=== PATIENT | female | born 1945 | race Caucasian/White ===

== ENCOUNTER 2016-03-24 12:07 | Observation (INO) | payer MEDICARE, OTHER ==
[2016-03-24] VITALS (9 sets, daily range): BP systolic 182–221; BP diastolic 76–90; PULSE 51–65; RESP 19–20; TEMP 97.8; O2SAT 94–98
[~2016-03-24] VITALS: Ht 157.5 cm; Wt 93.1 kg
[2016-03-24] MEDS ORDERED: FE F PO (12:24)
[2016-03-24] MEDS ORDERED: CIPR500T2 PO (12:24)
[2016-03-24] MEDS ORDERED: LEVOTHYROXINE (12:24)
[2016-03-24] MEDS ORDERED: VERAPAMIL (12:24)
[2016-03-24] MEDS ORDERED: SIMVPOW (12:24)
[2016-03-24] MEDS ORDERED: [UNRECOGNIZED DRUG - OTHER] (12:24)
--- NOTE | 2016-03-24 12:27 | PD ---
HPI Chief Complaint: Syncope/Near-Syncope Time Seen by Provider: 12:13 Travel History International Travel<30 days: No Contact w/Intl Traveler<30days: No Traveled to known affect area: No History of Present Illness HPI 71-year-old female complaining of dizziness palpitation and nausea. Patient states that the symptoms started this morning. Patient states that the symptoms lasted a short time and resolved completely. Patient states that she is feeling better now. Patient was seen in the emergency at [facility] 3 Days Ago for the Same Problem. Patient states the workup were negative. Patient does not have a local physician or hydroelectric systems technician. Patient states that she has some mild aching headache this morning. Patient denies any visual change. Patient denies any neck pain. Patient states that she had chest discomfort with shortness of breath earlier with the palpitation. Patient denies any shortness of breath or chest discomfort now. Patient denies abdominal pain. Patient states that she had nausea earlier but no vomiting. Patient denies dysuria or frequency. Patient denies any fever chills. Patient denies any back pain. Patient has history of hypertension, diet-controlled diabetes, dyslipidemia. Patient is a nonsmoker. Patient has family history of heart disease. PFSH Past Medical History Diabetes: Yes Patient Takes Glucophage: No Hypertension: Yes Thyroid Disease: Yes Influenza Vaccination: Yes Past Surgical History Cholecystectomy: Yes Other Surgery: Yes (GASTRIC BYPASS, BLADDER MESH ) Social History Alcohol Use: No Tobacco Use: No Substance Use: No Allergies-Medications (Allergen,Severity, Reaction): Coded Allergies: Iodine (Verified Allergy, Severe, Anaphylaxis, 03/24/16) Reported Meds & Prescriptions Reported Meds & Active Scripts Active Reported [Bladder ] Fusion (Multi-Vit/Iron-Vit C-Lactobacillus) 130-25-30 mg Cap 1 Cap PO DAILY Ciprofloxacin (Ciprofloxacin HCl) 500 Mg Tab 500 Mg PO BID [Simvastatin] [Levothyroxine] [Verapamil] Review of Systems General / Constitutional: No: Fever Eyes: No: Visual changes HENT: Positive: Lightheadedness, No: Headaches Cardiovascular: Positive: Palpitations, No: Chest Pain or Discomfort Respiratory: Positive: Shortness of Breath Gastrointestinal: No: Abdominal Pain Genitourinary: No: Dysuria Musculoskeletal: No: Pain Skin: No Rash Neurologic: No: Weakness Psychiatric: No: Depression Endocrine: No: Polydipsia Hematologic/Lymphatic: No: Easy Bruising Physical Exam Narrative GENERAL: Well-nourished, well-developed patient. SKIN: Warm and dry. HEAD: Normocephalic. EYES: No scleral icterus. No injection or drainage. NECK: Supple, trachea midline. No JVD or lymphadenopathy. CARDIOVASCULAR: Regular rate and rhythm without murmurs, gallops, or rubs. RESPIRATORY: Breath sounds equal bilaterally. No accessory muscle use. GASTROINTESTINAL: Abdomen soft, non-tender, nondistended. MUSCULOSKELETAL: No cyanosis, or edema. BACK: Nontender without obvious deformity. No CVA tenderness. Neurologic exam normal. Data Data Last Documented VS Vital Signs Date Time Temp Pulse Resp B/P Pulse Ox O2 Delivery O2 Flow Rate FiO2 03/24/16 12:55 98 Nasal Cannula 2 03/24/16 12:16 97.8 65 20 200/86 Orders Electrocardiogram (03/24/16 12:18) Complete Blood Count With Diff (03/24/16 12:18) Comprehensive Metabolic Panel (03/24/16 12:18) Creatine Kinase (Cpk) (03/24/16 12:18) Troponin I (03/24/16 12:18) B-Type Natriuretic Peptide (03/24/16 12:18) Prothrombin Time / Inr (Pt) (03/24/16 12:18) Act Partial Throm Time (Ptt) (03/24/16 12:18) Urinalysis - C+S If Indicated (03/24/16 12:18) Thyroid Stimulating Hormone (03/24/16 12:18) Chest, Single Ap (03/24/16 12:18) Ct Brain W/O Iv Contrast(Rout) (03/24/16 12:18) Iv Access Insert/Monitor (03/24/16 12:18) Ecg Monitoring (03/24/16 12:18) Oximetry (03/24/16 12:18) Sodium Chlor 0.9% 1000 Ml Inj (Ns 1000 M (03/24/16 12:30) Potassium Chloride (Kcl) (03/24/16 14:15) Ventilation & Perfusion Scan (03/24/16 14:29) D-Dimer (03/24/16 14:29) Enoxaparin Inj (Lovenox Inj) (03/24/16 14:30) Labs Laboratory Tests Test 03/24/16 03/24/16 12:34 13:18 White Blood Count 5.4 TH/MM3 Red Blood Count 4.35 MIL/MM3 Hemoglobin 13.1 GM/DL Hematocrit 39.4 % Mean Corpuscular Volume 90.5 FL Mean Corpuscular Hemoglobin 30.2 PG Mean Corpuscular Hemoglobin 33.3 % Concent Red Cell Distribution Width 13.0 % Platelet Count 166 TH/MM3 Mean Platelet Volume 10.3 FL Neutrophils (%) (Auto) 73.5 % Lymphocytes (%) (Auto) 16.4 % Monocytes (%) (Auto) 8.1 % Eosinophils (%) (Auto) 1.1 % Basophils (%) (Auto) 0.9 % Neutrophils # (Auto) 4.0 TH/MM3 Lymphocytes # (Auto) 0.9 TH/MM3 Monocytes # (Auto) 0.4 TH/MM3 Eosinophils # (Auto) 0.1 TH/MM3 Basophils # (Auto) 0.0 TH/MM3 CBC Comment DIFF FINAL Differential Comment Prothrombin Time 11.0 SEC Prothromb Time International 1.0 RATIO Ratio Activated Partial 26.2 SEC Thromboplast Time Sodium Level 144 MEQ/L Potassium Level 3.4 MEQ/L Chloride Level 112 MEQ/L Carbon Dioxide Level 24.5 MEQ/L Anion Gap 8 MEQ/L Blood Urea Nitrogen 16 MG/DL Creatinine 0.63 MG/DL Estimat Glomerular Filtration 93 ML/MIN Rate Random Glucose 89 MG/DL Calcium Level 8.3 MG/DL Total Bilirubin 0.5 MG/DL Aspartate Amino Transf 9 U/L (AST/SGOT) Alanine Aminotransferase 15 U/L (ALT/SGPT) Alkaline Phosphatase 98 U/L Total Creatine Kinase 45 U/L Troponin I LESS THAN 0.02 NG/ML B-Type Natriuretic Peptide 76 PG/ML Total Protein 6.3 GM/DL Albumin 3.3 GM/DL Thyroid Stimulating Hormone 6.940 uIU/ML 3rd Gen Urine Color YELLOW Urine Turbidity HAZY Urine pH 6.0 Urine Specific [place] 1.018 Urine Protein TRACE mg/dL Urine Glucose (UA) NEG mg/dL Urine Ketones NEG mg/dL Urine Occult Blood NEG Urine Nitrite NEG Urine Bilirubin NEG Urine Urobilinogen LESS THAN 2.0 MG/DL Urine Leukocyte Esterase TRACE Urine WBC 2 /hpf Urine Squamous Epithelial 6 /hpf Cells Urine Calcium Oxalate Crystals MANY /hpf Urine Bacteria RARE /hpf Urine Mucus FEW /lpf Microscopic Urinalysis Comment CULT NOT INDICATED [facility] Medical Decision Making Medical Screen Exam Complete: Yes Emergency Medical Condition: Yes Interpretation(s) 1401 p.m. EKG shows sinus bradycardia rate 56. CBC within normal limit. Potassium 3.4. Calcium 8.3. Cardiac enzymes are normal. TSH 6.94. UA positive for bacteria Differential Diagnosis Differential diagnosis including cardiac arrhythmia, TIA, CVA, electrolyte imbalance, dehydration, pneumonia, UTI, sepsis. Narrative Course 71-year-old female with dizziness, nausea, palpitation. Patient had similar episode 3 days ago and this morning. On monitor patient showed a short run of atrial flutter. KCl 20 mEq by mouth given. Dr. Tristan, hydroelectric systems technician on- call came to see the patient. Advised Lovenox. Diagnosis Primary Impression: Paroxysmal atrial flutter Additional Impression: Hypokalemia Admitting Information Admitting Physician Requests: Riley Fernando MD Mar 24, 2016 12:27
[2016-03-24 12:59] LABS: BASOPHIL % 0.9 % (0.0-2.0); EOSINOPHIL # 0.1 TH/MM3 (0-0.4); EOSINOPHIL % 1.1 % (0.0-4.0); HEMATOCRIT 39.4 % (35.0-46.0); HEMO FLAGS DIFF FINAL; LYMPH % 16.4 % (9.0-44.0); LYMPHOCYTE # 0.9 TH/MM3 (1.0-4.8); MEAN CELL VOLUME 90.5 FL (80.0-100.0); MEAN CORPUSCULAR HEMOGLOBIN 30.2 PG (27.0-34.0); MEAN CORPUSCULAR HGB CONC 33.3 % (32.0-36.0); MONO % 8.1 % (0.0-8.0); NEUT % 73.5 % (16.0-70.0); PLATELET COUNT 166 TH/MM3 (150-450); RED BLOOD COUNT 4.35 MIL/MM3 (4.00-5.30); WHITE BLOOD COUNT 5.4 TH/MM3 (4.0-11.0)
[2016-03-24 13:05] LABS: APTT (PATIENT) 26.2 SEC (24.3-30.1)
[2016-03-24] MEDS: SODIUM CHLOR 0.9% 1000 ML INJ 1,000 ML IV SCH ×2 (13:11→22:37)
[2016-03-24 13:13] LABS: ALT (GPT) 15 U/L (10-53); ANION GAP 8 MEQ/L (5-15); AST (GOT) 9 U/L (15-37); BICARBONATE 24.5 MEQ/L (21.0-32.0); BLOOD UREA NITROGEN 16 MG/DL (7-18); CHLORIDE 112 MEQ/L (98-107); GLOMERULAR FILTRATION RATE 93 ML/MIN (>89); POTASSIUM 3.4 MEQ/L (3.5-5.1); SODIUM (NA) 144 MEQ/L (136-145)
--- NOTE | 2016-03-24 13:18 | RADRPT ---
EXAM DATE/TIME: 03/24/2016 12:44 [facility] COMPARISON: No previous studies available for comparison. INDICATIONS : Abnormally tired with weakness and dizziness. MEDICAL HISTORY : None. SURGICAL HISTORY : None. ENCOUNTER: Initial ACUITY: 3 days PAIN SCORE: 0/10 LOCATION: Bilateral chest FINDINGS: A single view of the chest demonstrates the lungs to be symmetrically aerated without evidence of mas s, infiltrate or effusion. The cardiomediastinal contours are unremarkable. Osseous structures are intact. CONCLUSION: No acute disease. Gordon Deluna MD on March 24, 2016 at 13:16 Board Certified Radiologist. This report was verified electronically.
[2016-03-24 13:22] LABS: ALKALINE PHOSPHATASE 98 U/L (45-117); TOTAL BILIRUBIN ADULT 0.5 MG/DL (0.2-1.0)
[2016-03-24 13:23] LABS: CREATINE KINASE 45 U/L (26-192)
[2016-03-24 13:40] LABS: BACTERIA, URINE RARE /hpf; BLOOD, URINE NEG (NEG); CALCIUM OXALATE CRYSTALS,URINE MANY /hpf; COMMENT (UR) CULT NOT INDICATED; CULTURE IF INDICATED CULT NOT INDICATED; GLUCOSE,URINE NEG (NEG); KETONE, URINE NEG (NEG); MUCUS URINE FEW /lpf (OCC); NITRITE,URINE NEG (NEG); SQUAMOUS EPITHELIAL CELL URINE 6 /hpf (0-5); URINE COLOR YELLOW (YELLW/STRAW)
--- NOTE | 2016-03-24 13:44 | RADRPT ---
EXAM DATE/TIME: 03/24/2016 13:25 [facility] COMPARISON: No previous studies available for comparison. INDICATIONS : Dizziness and nausea. RADIATION DOSE: 38.49 CTDIvol (mGy) MEDICAL HISTORY : Hypertension. Diabetes. SURGICAL HISTORY : Cholecystectomy. ENCOUNTER: Initial ACUITY: 1 day PAIN SCALE: 0/10 LOCATION: cranial TECHNIQUE: Multiple contiguous axial images were obtained of the head. Using automated exposure control and adj ustment of the mA and/or kV according to patient size, radiation dose was kept as low as reasonably a chievable to obtain optimal diagnostic quality images. FINDINGS: CEREBRUM: The ventricles are normal for age. No evidence of midline shift, mass lesion, hemorrhage or acute in farction. No extra-axial fluid collections are seen. POSTERIOR FOSSA: The cerebellum and brainstem are intact. The 4th ventricle is midline. The cerebellopontine angle i s unremarkable. EXTRACRANIAL: The visualized portion of the orbits is intact. Right parietal scalp lesion SKULL: The calvaria is intact. No evidence of skull fracture. CONCLUSION: 1. No acute intracranial abnormality. 2. Right parietal scalp lesion. Clinical correlation. Gordon Deluna MD on March 24, 2016 at 13:42 Board Certified Radiologist. This report was verified electronically.
[2016-03-24] MEDS ORDERED: POTASSIUM CHLORIDE 20 MEQ CONTROLLED RELEASE TAB PO ONE ×2 (14:15→14:45)
[2016-03-24] MEDS ORDERED: ENOXAPARIN SODIUM 100 MG/ML SYRINGE SQ ONE (14:30)
[2016-03-24] MEDS ORDERED: ENALAPRILAT 1.25 MG/ML VIAL IV PUSH ONE (16:00)
[2016-03-24] MEDS ORDERED: SODIUM CHLORIDE 0.9% FLUSH 5 ML FLUSH FLUSH PRN (16:15)
--- NOTE | 2016-03-24 16:22 | MB ---
cc: TYRONE CHAPARRO M.D. DATE OF CONSULTATION: 03/24/2016 REASON FOR CONSULTATION AND HISTORY OF PRESENT ILLNESS: The patient is a pleasant 71-year-old white female I am seeing for atrial flutter. Her is there. The patient flew in from [place] approximately ten days ago. Many years ago she may have had some flip-flops in her chest or fluttering when she had a thyroid issue but has had none since. The patient approximately one week ago was seen in [facility] for thirty minutes of palpitations. Apparently her heart rate in the ambulance was over 110, but was back to normal in the emergency room. I do not have records. Except for generalized fatigue and mild stable dyspnea, she has had no symptoms up until today. This morning, she had headache, nausea and a faster heart rate which lasted twenty minutes, but resolved by the time she got to the emergency room. In the emergency room, she did have a very short run of controlled atrial flutter. She is in sinus rhythm now with essentially normal EKG. PAST MEDICAL HISTORY: 1. Hypertension. 2. Diabetes. 3. Hyperlipidemia. 4. Hypothyroidism. 5. Gastric bypass. 6. Bladder suspension. 7. Cholecystectomy. 8. Degenerative joint disease. ALLERGIES: IODINE DYE, WHICH RESULTS IN ANGIOEDEMA. SOCIAL HISTORY: She is and does not smoke or drink. REVIEW OF SYSTEMS: Her review of systems is only remarkable for occasional joint pain and sleep issues along with the above. MEDICATIONS PRIOR TO ADMISSION: 1. Levothyroxine. 2. Simvastatin. 3. Verapamil. 4. Glucophage. LABORATORY DATA: CBC normal. Potassium 3.4, which will be repleted. Glucose 89. Liver functions normal. Troponin and BNP normal. TSH mildly elevated at 6.94. Urinalysis negative. She did have a recent urinary tract infection. IMAGING STUDIES: Head CT remarkable for a scalp lesion but no intracranial abnormalities. Chest x-ray negative. PHYSICAL EXAMINATION: GENERAL: On exam, she is alert and oriented times three. She is overweight. SKIN: There are no xanthelasma and oropharyngeal mucosa normal. CHEST: Clear. CARDIOVASCULAR: JVD normal. PMI not well-appreciated. S1, S2. No murmurs or gallops. ABDOMEN: Benign. EXTREMITIES: No cyanosis, clubbing or edema. PULSES: Carotids without bruits. Radials 1 to 2+. Femorals deep, 1+ without bruits. Pedals 1+. ASSESSMENT AND PLAN: The patient has had palpitations with a short run of documented controlled atrial flutter. She has multiple cardiac risk factors. At this point, I would recommend the followin. Continue home medication including for rapid male as clearly this appears to be controlling her heart rate. Her will clarify the dose. 2. The emergency room physician will order a VQ lung scan to rule out pulmonary embolus, given the woman's recent long plane trip and iodine dye allergy. He will also start her on Lovenox. 3. Echocardiogram to assess ventricular and valvular function. 4. The patient most likely will need a SPECT nuclear to rule out significant ischemia. Further recommendations will follow. MD JEAN-CLAUDE Ashby/ELEAZAR /2:46 PM /4:13 PM
--- NOTE | 2016-03-24 16:34 | HHI.HP ---
[facility] Service [facility] Primary Care Physician No Primary Care Physician Admission Diagnosis paroxysmal atrial flutter Diagnoses: Chief Complaint: Palpitations Travel History International Travel<30 Days: No Contact w/Intl Traveler <30 Da: No Traveled to Known Affected Are: No History of Present Illness 71-year-old female with a past medical history of HTN, HLD, hypothyroidism who presented with palpitations. The patient states that she's been having recent episodes of heart palpitations. She states that last week she had an episode where her heart was racing with associated shortness of breath. She was evaluated in the ED at [facility] and was given prescription for UTI and discharged. Today she had a recurrent episode where she felt tired, weak, nauseous, with a mild headache. She denies any chest pain. She states that she is always a little short of breath, denies any acute worsening today. She denies any fevers or chills. She states that after receiving antibiotics for UTI her dysuria has resolved. She did recently travel from [place] about . She does state that her legs are sore when they're touched. She did not take her blood pressure medications today. Review of Systems Other 10 point review of systems performed and was negative except as stated in the history of present illness Past Family Social History Past Medical History Hypertension Hyperlipidemia Hypothyroidism Past Surgical History Gastric bypass surgery Bladder mesh Cholecystectomy Lipoma removed from right arm Reported Medications The patient is unsure of her home doses of medications [Bladder ] Fusion (Multi-Vit/Iron-Vit C-Lactobacillus) 130-25-30 mg Cap 1 Cap PO DAILY Ciprofloxacin (Ciprofloxacin HCl) 500 Mg Tab 500 Mg PO BID [Simvastatin] [Levothyroxine] [Verapamil] Allergies: Coded Allergies: Iodine (Verified Allergy, Severe, Anaphylaxis, 03/24/16) Active Ordered Medications Current Medications Medications (Trade) Dose Ordered Sig/Rommel Route Start Time Stop Time Status Last Admin (NS 1000 ml Inj) 1,000 ml @ 100 mls/hr Q10H IV 03/24/16 12:30 03/24/16 13:11 (Isoptin Sr) 180 mg DAILY PO 03/25/16 09:00 (Vasotec Inj) 1.25 mg Q6H PRN IV PUSH 03/24/16 22:00 (NS Flush) 2 ml UNSCH PRN FLUSH 03/24/16 16:15 (NS Flush) 2 ml BID FLUSH 03/24/16 21:00 Family History Mother had diabetes Mom had a pacemaker Social History Former tobacco use, none currently Denies any alcohol or drug use for 52 years with 3 children Physical Exam Vital Signs Vital Signs Date Time Temp Pulse Resp B/P Pulse Ox O2 Delivery O2 Flow Rate FiO2 03/24/16 16:09 52 19 182/76 95 Nasal Cannula 2 03/24/16 16:00 51 221/85 Nasal Cannula 2 03/24/16 15:26 51 20 221/90 95 Nasal Cannula 2 03/24/16 12:55 98 Nasal Cannula 2 03/24/16 12:16 97.8 65 20 200/86 94 Physical Exam GENERAL: Well-developed well-nourished. In no acute distress. SKIN: Warm and dry. No lesions noted. HEENT: Normocephalic. Pupils equal and round. Mucous membranes pink and moist. CARDIOVASCULAR: Bradycardic rate and rhythm. No murmur appreciated. RESPIRATORY: No accessory muscle use. Clear to auscultation. Breath sounds equal bilaterally. GASTROINTESTINAL: Abdomen soft, non-tender, nondistended. Bowel sounds x4. MUSCULOSKELETAL: No obvious deformities. No clubbing or cyanosis. No edema. Tender to palpation bilaterally. NEUROLOGICAL: Awake and alert. No focal neurological deficits. Moves upper and lower extremities spontaneously. Normal speech. PSYCHIATRIC: Appropriate mood and affect; insight and judgment normal. Laboratory Laboratory Tests Test 03/24/16 03/24/16 12:34 13:18 White Blood Count 5.4 Red Blood Count 4.35 Hemoglobin 13.1 Hematocrit 39.4 Mean Corpuscular Volume 90.5 Mean Corpuscular Hemoglobin 30.2 Mean Corpuscular Hemoglobin 33.3 Concent Red Cell Distribution Width 13.0 Platelet Count 166 Mean Platelet Volume 10.3 Neutrophils (%) (Auto) 73.5 Lymphocytes (%) (Auto) 16.4 Monocytes (%) (Auto) 8.1 Eosinophils (%) (Auto) 1.1 Basophils (%) (Auto) 0.9 Neutrophils # (Auto) 4.0 Lymphocytes # (Auto) 0.9 Monocytes # (Auto) 0.4 Eosinophils # (Auto) 0.1 Basophils # (Auto) 0.0 CBC Comment DIFF FINAL Differential Comment Prothrombin Time 11.0 Prothromb Time International 1.0 Ratio Activated Partial 26.2 Thromboplast Time D-Dimer Quantitative (PE/DVT) 0.27 Sodium Level 144 Potassium Level 3.4 Chloride Level 112 Carbon Dioxide Level 24.5 Anion Gap 8 Blood Urea Nitrogen 16 Creatinine 0.63 Estimat Glomerular Filtration 93 Rate Random Glucose 89 Calcium Level 8.3 Total Bilirubin 0.5 Aspartate Amino Transf 9 (AST/SGOT) Alanine Aminotransferase 15 (ALT/SGPT) Alkaline Phosphatase 98 Total Creatine Kinase 45 Troponin I LESS THAN 0.02 B-Type Natriuretic Peptide 76 Total Protein 6.3 Albumin 3.3 Thyroid Stimulating Hormone 6.940 3rd Gen Urine Color YELLOW Urine Turbidity HAZY Urine pH 6.0 Urine Specific [place] 1.018 Urine Protein TRACE Urine Glucose (UA) NEG Urine Ketones NEG Urine Occult Blood NEG Urine Nitrite NEG Urine Bilirubin NEG Urine Urobilinogen LESS THAN 2.0 Urine Leukocyte Esterase TRACE Urine WBC 2 Urine Squamous Epithelial 6 Cells Urine Calcium Oxalate Crystals MANY Urine Bacteria RARE Urine Mucus FEW Microscopic Urinalysis Comment CULT NOT INDICATED Result Diagram: 03/24/16 1234 03/24/16 1234 Imaging Last Impressions Head CT 03/24/168 Signed Impressions: Service Date/Time: Thursday, March 24, 2016 13:25 - CONCLUSION: 1. No acute intracranial abnormality. 2. Right parietal scalp lesion. Clinical correlation. Gordon Deluna MD Chest X-Ray 03/24/168 Signed Impressions: Service Date/Time: Thursday, March 24, 2016 12:44 - CONCLUSION: No acute disease. Gordon Deluna MD Assessment and Plan Problem List: (1) Paroxysmal atrial flutter ICD Code: I48.92 Status: Acute Assessment and Plan 71-year-old female with a past medical history of HTN, HLD, hypothyroidism who presented with palpitations Paroxysmal atrial flutter: EKG shows sinus bradycardia, but patient did have a run of atrial flutter on telemetry. Cardiology was consulted and evaluated the patient in the ED, appreciate recommendations. Chadsvasc 3, given Lovenox, continue for now. Verapamil was continued. VQ scan was ordered with iodine allergy, doubt PE with normal d-dimer. Echocardiogram ordered. Potassium replenished. Check troponins. Follow-up electrolytes and repeat BMP. Monitor on telemetry. Reconcile and adjust home thyroid medication. Calf pain: Doubt DVT with normal d-dimer, but with calf tenderness and recent travel will check Doppler ultrasound. Hypothyroidism: TSH elevated at 6.9. Patient is unsure of home levothyroxine dose. Reconcile home levothyroxine dose and increase. Check T4. Accelerated hypertension: Likely from missed BP meds. Give IV Vasotec 1 now and continue as needed. Home verapamil resumed by cardiology. Hypokalemia: Mild. Potassium 3.4. Replenished orally. Check magnesium and follow-up BMP. Replenish electrolytes as needed. Recent UTI: Patient states she has a history of frequent UTIs. Status post treatment with antibiotics. Urinary symptoms have resolved. UA slightly abnormal, but no culture sent. Monitor off antibiotics for now. DVT prophylaxis: Lovenox Written by Dao Mcarthur, acting as scribe for Dr. Banks on 03/24/16 at 16:34. Discussed Condition With Patient with at bedside, ED RN, Dr. Arthur Attending Statement The documentation accurately reflects the work performed [id number] by me on at 16:34. Dao Mcarthur Mar 24, 2016 16:34 Gavino Meier MD Mar 26, 2016 14:11
--- NOTE | 2016-03-24 17:18 | RADRPT ---
EXAM DATE/TIME: 03/24/2016 16:54 [facility] COMPARISON: No previous studies available for comparison. INDICATIONS : Dyspnea with palpitations. DOSE: 8.5 mCi Tc99m MAA IV 1.3 mCi Tc99m DTPA aerosol MEDICAL HISTORY : Hypertension. Hypothyroidism. SURGICAL HISTORY : Cholecystectomy. Gastric bypass and bladder mesh. ENCOUNTER: Initial ACUITY: 1 day PAIN SCALE: 0/10 LOCATION: chest TECHNIQUE: Following five minutes of tidal breathing of DTPA aerosol, planar images of the lungs were performed in eight projections. The patient was then injected with MAA, and eight-view perfusion scan was perf ormed. FINDINGS: There is a mildly heterogeneous pattern of aerosol delivery to the periphery of both lungs. No focal ventilatory defects are seen. The perfusion lung scan demonstrates a homogenous pattern of uptake in both lungs. No segmental or s ubsegmental defects are seen. CONCLUSION: 1. No evidence for pulmonary embolus. Matt Griffin MD on March 24, 2016 at 17:16 Board Certified Radiologist. This report was verified electronically.
[2016-03-24] MEDS: ENALAPRILAT 1.25 MG/ML VIAL IV PUSH PRN (18:15)
--- NOTE | 2016-03-24 18:25 | RADRPT ---
EXAM DATE/TIME: 03/24/2016 17:30 [facility] COMPARISON: No previous studies available for comparison. INDICATIONS : Emboli MEDICAL HISTORY : Hypertension. Thyroid disease. Diabetes. SURGICAL HISTORY : Right arm surgery. ENCOUNTER: Initial ACUITY: 1 day PAIN SCORE: 0/10 LOCATION: Bilateral legs TECHNIQUE: Venous ultrasound of the left and right leg was performed from the inguinal ligament to the proximal calf. Real-time, color Doppler and spectral tracing, compression and augmentation techniques were us ed. FINDINGS: RIGHT LEG: There is normal compressibility of the deep venous system from the inguinal region to the proximal ca lf. No echogenic clot is seen in the lumen of the common femoral, femoral, popliteal, and posterior tibial veins. There is a normal response of the venous system to proximal and distal augmentation an d respiration. LEFT LEG: There is normal compressibility of the deep venous system from the inguinal region to the proximal ca lf. No echogenic clot is seen in the lumen of the common femoral, femoral, popliteal, and posterior tibial veins. There is a normal response of the venous system to proximal and distal augmentation an d respiration. CONCLUSION: Normal examination. Matt Griffin MD on March 24, 2016 at 18:23 Board Certified Radiologist. This report was verified electronically.
[2016-03-24] MEDS: SODIUM CHLORIDE 0.9% FLUSH 5 ML FLUSH FLUSH SCH (21:07)
[2016-03-25] VITALS (9 sets, daily range): BP systolic 140–209; BP diastolic 68–87; PULSE 52–59; RESP 12–20; TEMP 97.1–98.3; O2SAT 92–96
[2016-03-25] MEDS ORDERED: ENOXAPARIN SODIUM 100 MG/ML SYRINGE SQ SCH (03:00)
[2016-03-25 07:00] LABS: HEMATOCRIT 36.1 % (35.0-46.0); MEAN CELL VOLUME 89.8 FL (80.0-100.0); MEAN CORPUSCULAR HEMOGLOBIN 30.1 PG (27.0-34.0); MEAN CORPUSCULAR HGB CONC 33.5 % (32.0-36.0); PLATELET COUNT 154 TH/MM3 (150-450); RED BLOOD COUNT 4.02 MIL/MM3 (4.00-5.30); RED CELL DISTRIBUTION WIDTH 13.1 % (11.6-17.2); REVIEW FLAG FINAL; WHITE BLOOD COUNT 5.2 TH/MM3 (4.0-11.0)
[2016-03-25 07:27] LABS: POTASSIUM 3.6 MEQ/L (3.5-5.1)
[2016-03-25 07:36] LABS: FREE T4 1.12 NG/DL (0.76-1.46)
--- NOTE | 2016-03-25 07:43 | PD.CARD.PN ---
Subjective Subjective Remarks Patient denies any chest pain, shortness of breath, palpitations, GI symptoms or bleeding. Telemetry reveals sinus bradycardia. Objective Medications Reviewed Vital Signs / I&O Vital Signs Date Time Temp Pulse Resp B/P Pulse Ox O2 Delivery O2 Flow Rate FiO2 03/25/16 04:44 97.1 53 20 156/75 96 03/25/16 00:20 98.3 52 20 166/73 96 03/25/16 00:00 52 03/24/16 22:42 63 20 188/79 96 2 03/24/16 20:10 96 Nasal Cannula 2.00 03/24/16 19:59 63 20 193/79 94 Nasal Cannula 2 03/24/16 16:40 95 Nasal Cannula 2.00 03/24/16 16:09 52 19 182/76 95 Nasal Cannula 2 03/24/16 16:00 51 221/85 Nasal Cannula 2 03/24/16 15:26 51 20 221/90 95 Nasal Cannula 2 03/24/16 12:55 98 Nasal Cannula 2 03/24/16 12:16 97.8 65 20 200/86 94 I/O 03/24/16 03/24/16 03/24/16 03/25/16 03/25/16 03/25/16 07:00 15:00 23:00 07:00 15:00 23:00 Intake Total 240 ml Balance 240 ml Intake Oral 240 ml # Voids 2 Physical Exam GENERAL: Overweight, well-nourished, well-developed patient in no apparent distress. SKIN: Warm and dry. NECK: JVD normal - less than or equal to 5 cm H20. CARDIOVASCULAR: Regular rate and rhythm without murmurs, gallops, or rubs. RESPIRATORY: Normal breath sounds - equal bilaterally. No accessory muscle use. No wheezes, rales or rubs. PERIPHERY: No cyanosis, or edema. Laboratory Laboratory Tests Test 03/24/16 03/24/16 03/24/16 03/24/16 12:34 13:18 16:50 22:40 White Blood Count 5.4 TH/MM3 Red Blood Count 4.35 MIL/MM3 Hemoglobin 13.1 GM/DL Hematocrit 39.4 % Mean Corpuscular Volume 90.5 FL Mean Corpuscular Hemoglobin 30.2 PG Mean Corpuscular Hemoglobin 33.3 % Concent Red Cell Distribution Width 13.0 % Platelet Count 166 TH/MM3 Mean Platelet Volume 10.3 FL Neutrophils (%) (Auto) 73.5 % Lymphocytes (%) (Auto) 16.4 % Monocytes (%) (Auto) 8.1 % Eosinophils (%) (Auto) 1.1 % Basophils (%) (Auto) 0.9 % Neutrophils # (Auto) 4.0 TH/MM3 Lymphocytes # (Auto) 0.9 TH/MM3 Monocytes # (Auto) 0.4 TH/MM3 Eosinophils # (Auto) 0.1 TH/MM3 Basophils # (Auto) 0.0 TH/MM3 CBC Comment DIFF FINAL Differential Comment Prothrombin Time 11.0 SEC Prothromb Time International 1.0 RATIO Ratio Activated Partial 26.2 SEC Thromboplast Time D-Dimer Quantitative (PE/DVT) 0.27 MG/L FEU Sodium Level 144 MEQ/L Potassium Level 3.4 MEQ/L Chloride Level 112 MEQ/L Carbon Dioxide Level 24.5 MEQ/L Anion Gap 8 MEQ/L Blood Urea Nitrogen 16 MG/DL Creatinine 0.63 MG/DL Estimat Glomerular Filtration 93 ML/MIN Rate Random Glucose 89 MG/DL Calcium Level 8.3 MG/DL Total Bilirubin 0.5 MG/DL Aspartate Amino Transf 9 U/L (AST/SGOT) Alanine Aminotransferase 15 U/L (ALT/SGPT) Alkaline Phosphatase 98 U/L Total Creatine Kinase 45 U/L Troponin I LESS THAN 0.02 LESS THAN 0.02 LESS THAN 0.02 NG/ML NG/ML NG/ML B-Type Natriuretic Peptide 76 PG/ML Total Protein 6.3 GM/DL Albumin 3.3 GM/DL Thyroid Stimulating Hormone 6.940 uIU/ML 3rd Gen Urine Color YELLOW Urine Turbidity HAZY Urine pH 6.0 Urine Specific [place] 1.018 Urine Protein TRACE mg/dL Urine Glucose (UA) NEG mg/dL Urine Ketones NEG mg/dL Urine Occult Blood NEG Urine Nitrite NEG Urine Bilirubin NEG Urine Urobilinogen LESS THAN 2.0 MG/DL Urine Leukocyte Esterase TRACE Urine WBC 2 /hpf Urine Squamous Epithelial 6 /hpf Cells Urine Calcium Oxalate Crystals MANY /hpf Urine Bacteria RARE /hpf Urine Mucus FEW /lpf Microscopic Urinalysis Comment CULT NOT INDICATED Magnesium Level 2.0 MG/DL Test 03/25/16 05:34 White Blood Count 5.2 TH/MM3 Red Blood Count 4.02 MIL/MM3 Hemoglobin 12.1 GM/DL Hematocrit 36.1 % Mean Corpuscular Volume 89.8 FL Mean Corpuscular Hemoglobin 30.1 PG Mean Corpuscular Hemoglobin 33.5 % Concent Red Cell Distribution Width 13.1 % Platelet Count 154 TH/MM3 Mean Platelet Volume 9.9 FL Sodium Level 145 MEQ/L Potassium Level 3.6 MEQ/L Chloride Level 110 MEQ/L Carbon Dioxide Level 29.0 MEQ/L Anion Gap 6 MEQ/L Blood Urea Nitrogen 14 MG/DL Creatinine 0.51 MG/DL Estimat Glomerular Filtration 119 ML/MIN Rate Random Glucose 77 MG/DL Calcium Level 7.9 MG/DL Free Thyroxine 1.12 NG/DL Thyroid Stimulating Hormone 11.700 uIU/ML 3rd Gen Imaging Last 48 hours Impressions Lung Scan-VQ Nuclear Medicine 03/24/16 1429 Signed Impressions: Service Date/Time: Thursday, March 24, 2016 16:54 - CONCLUSION: 1. No evidence for pulmonary embolus. Matt Griffin MD Head CT 03/24/16 1218 Signed Impressions: Service Date/Time: Thursday, March 24, 2016 13:25 - CONCLUSION: 1. No acute intracranial abnormality. 2. Right parietal scalp lesion. Clinical correlation. Gordon Deluna MD Chest X-Ray 03/24/16 1218 Signed Impressions: Service Date/Time: Thursday, March 24, 2016 12:44 - CONCLUSION: No acute disease. Gordon Deluna MD Lower Extremity Ultrasound 03/24/16 0000 Signed Impressions: Service Date/Time: Thursday, March 24, 2016 17:30 - CONCLUSION: Normal examination. Matt Griffin MD Assessment and Plan Assessment and Plan Problems: Palpitations with one isolated strip showing atrial flutter with controlled response. I have reviewed the strip with Dr. Crawford and we both feel this does represent atrial flutter. Hypertension Hyperlipidemia Diabetes Hypothyroidism Obesity Recommendations: Continue verapamil for rate control. I will start Eliquis because of risk for stroke/embolus. The risks/benefits/ alternatives were explained and informed consent obtained. Risk factor modification per primary service. Echocardiogram is pending. If the echocardiogram is essentially normal and the patient is stable she can be discharged home tomorrow with follow-up in [place]. She will arrange cardiology follow-up there through her primary care provider. I would not pursue any heavy exertion. She will need a sleep apnea test at some point in time and ischemic workup. I will be available if needed. Harpal Tristan MD Mar 25, 2016 07:43
[2016-03-25] MEDS: SODIUM CHLORIDE 0.9% FLUSH 5 ML FLUSH FLUSH SCH ×2 (09:00→21:37)
[2016-03-25] MEDS: VERAPAMIL HCL 180 MG SUSTAINED RELEASE TAB PO SCH (09:09)
[2016-03-25] MEDS: SODIUM CHLOR 0.9% 1000 ML INJ 1,000 ML IV SCH (09:10)
[2016-03-25] MEDS ORDERED: LISI-519 PO (10:13)
[2016-03-25] MEDS ORDERED: APIX5TAB PO (10:13)
--- NOTE | 2016-03-25 10:34 | HHI.DCPOC ---
Discharge Care Plan Goals to Promote Your Health * To prevent worsening of your condition and complications * To maintain your health at the optimal level Directions to Meet Your Goals Take your medications as prescribed Follow your dietary instruction Follow activity as directed Keep your appointments as scheduled Take your immunizations and boosters as scheduled If your symptoms worsen call your PCP, if no PCP go to Urgent Care Center or Emergency Room Smoking is Dangerous to Your Health. Avoid second hand smoke Call the 24-hour hour crisis hotline for domestic abuse at Essie Rivas MD Mar 25, 2016 10:14
--- NOTE | 2016-03-25 10:34 | HHI.PR ---
Subjective Remarks Her BP is noted elevated today. Start lisinopril. Says she still feels sob, but is improved. No n/v/d/c. Has the same cough, no fever or chills. Says she is aware of haviong a nodule in her imaging as was seen before. Doesn't have a pulm but intends to follow with pulm as OP. Objective Vitals Vital Signs Date Time Temp Pulse Resp B/P Pulse Ox O2 Delivery O2 Flow Rate FiO2 03/25/16 08:00 97.7 59 12 209/84 96 03/25/16 04:44 97.1 53 20 156/75 96 03/25/16 00:20 98.3 52 20 166/73 96 03/25/16 00:00 52 03/24/16 22:42 63 20 188/79 96 2 03/24/16 20:10 96 Nasal Cannula 2.00 03/24/16 19:59 63 20 193/79 94 Nasal Cannula 2 03/24/16 16:40 95 Nasal Cannula 2.00 03/24/16 16:09 52 19 182/76 95 Nasal Cannula 2 03/24/16 16:00 51 221/85 Nasal Cannula 2 03/24/16 15:26 51 20 221/90 95 Nasal Cannula 2 03/24/16 12:55 98 Nasal Cannula 2 03/24/16 12:16 97.8 65 20 200/86 94 I/O 03/24/16 03/24/16 03/24/16 03/25/16 03/25/16 03/25/16 07:00 15:00 23:00 07:00 15:00 23:00 Intake Total 240 ml Balance 240 ml Intake Oral 240 ml # Voids 2 Result Diagram: 03/25/16 0534 03/25/16 0534 Imaging Last Impressions Lung Scan-V Nuclear Medicine 03/24/16 1429 Signed Impressions: Service Date/Time: Thursday, March 24, 2016 16:54 - CONCLUSION: 1. No evidence for pulmonary embolus. Matt Griffin MD Head CT 03/24/16 1218 Signed Impressions: Service Date/Time: Thursday, March 24, 2016 13:25 - CONCLUSION: 1. No acute intracranial abnormality. 2. Right parietal scalp lesion. Clinical correlation. Gordon Deluna MD Chest X-Ray 03/24/16 1218 Signed Impressions: Service Date/Time: Thursday, March 24, 2016 12:44 - CONCLUSION: No acute disease. Gordon Deluna MD Lower Extremity Ultrasound 03/24/16 0000 Signed Impressions: Service Date/Time: Thursday, March 24, 2016 17:30 - CONCLUSION: Normal examination. Matt Griffin MD Objective Remarks GENERAL: Well-developed well-nourished. In no acute distress. SKIN: Warm and dry. No lesions noted. HEENT: Normocephalic. Pupils equal and round. Mucous membranes pink and moist. CARDIOVASCULAR: Bradycardic rate and rhythm. No murmur appreciated. RESPIRATORY: No accessory muscle use. Clear to auscultation. Breath sounds equal bilaterally. GASTROINTESTINAL: Abdomen soft, non-tender, nondistended. Bowel sounds x4. MUSCULOSKELETAL: No obvious deformities. No clubbing or cyanosis. No edema. Tender to palpation bilaterally. NEUROLOGICAL: Awake and alert. No focal neurological deficits. Moves upper and lower extremities spontaneously. Normal speech. PSYCHIATRIC: Appropriate mood and affect; insight and judgment normal. A/P Problem List: (1) Paroxysmal atrial flutter ICD Code: I48.92 Status: Acute Assessment and Plan 71-year-old female with a past medical history of HTN, HLD, hypothyroidism who presented with palpitations Proximal atrial flutter: EKG shows sinus bradycardia, but patient did have a run of atrial flutter on telemetry. Cardiology was consulted and evaluated the patient in the ED, appreciate recommendations. Chadsvasc 3, given Lovenox, continue for now. Verapamil was continued. VQ scan was ordered with iodine allergy, doubt PE with normal d-dimer. Echocardiogram ordered. Potassium replenished. Check troponins. Follow-up electrolytes and repeat BMP. Monitor on telemetry. Reconcile and adjust home thyroid medication. Calf pain: Doubt DVT with normal d-dimer, but with calf tenderness and recent travel will check Doppler ultrasound negative. VQ scan negative . Hypothyroidism: TSH elevated at 6.9. Patient is unsure of home levothyroxine dose. Reconcile home levothyroxine dose and increase. Check T4. Accelerated hypertension: Likely from missed BP meds. Give IV Vasotec 1 now and continue as needed. Home verapamil resumed by cardiology. Hypokalemia: Mild. Potassium 3.4. Replenished orally. Check magnesium and follow-up BMP. Replenish electrolytes as needed. Recent UTI: Patient states she has a history of frequent UTIs. Status post treatment with antibiotics. Urinary symptoms have resolved. UA slightly abnormal, but no culture sent. Monitor off antibiotics for now. DVT prophylaxis: Lovenox DC if normal ECHO and BP sustain SBP < 160 Essie Rivas MD Mar 25, 2016 10:09
[2016-03-25] MEDS ORDERED: LISINOPRIL 5 MG TAB PO ONE (11:00)
--- NOTE | 2016-03-25 11:53 | EKG ---
Date Performed: 03/24/2016 Time Performed: 12:38:02 PTAGE: 71 years EKG: SINUS BRADYCARDIA MODERATE ST DEPRESSION ABNORMAL ECG NO PREVIOUS TRACING DOCTOR: Shaq Valenzuela Interpretating Date/Time 03/25/2016 11:47:16
[2016-03-25] MEDS: ENALAPRILAT 1.25 MG/ML VIAL IV PUSH PRN (17:11)
[2016-03-25] MEDS: APIXABAN 5 MG TABLET PO SCH ×2 (17:11→21:36)
--- NOTE | 2016-03-25 19:00 | EC ---
Study Study Date:03/25/2016 STUDY CONCLUSIONS SUMMARY - Left ventricle: The cavity size was normal. Wall thickness was normal. Systolic function was vigorous. The estimated ejection fraction was in the range of 65% to 70%. Wall motion was normal; there were no regional wall motion abnormalities. - Aortic valve: Valve area: 2.36cm^2 (Vmax). If LV function is below 40, please consider prescribing an ACEI or ARB or document rationale for non-use. PROCEDURE DATA STUDY STATUS: Elective. Procedure: Transthoracic echocardiography. Image quality was adequate. Scanning was performed from the parasternal, apical, and subcostal acoustic windows. Study completion: The patient tolerated the procedure well. Transthoracic echocardiography. M-mode, complete 2D, complete spectral Doppler, and color Doppler. Height: Height: 62in. Weight: Weight: 197.6lb. Body mass index: BMI: 36.2kg/m^2. Body surface area: BSA: 1.9m^2. Patient status: Inpatient. CARDIAC ANATOMY LEFT VENTRICLE: The cavity size was normal. Wall thickness was normal. Systolic function was vigorous. The estimated ejection fraction was in the range of 65% to 70%. Wall motion was normal; there were no regional wall motion abnormalities. AORTIC VALVE: Trileaflet; normal thickness leaflets. Doppler: Transvalvular velocity was within the normal range. There was no stenosis. No regurgitation. Valve area: 2.36cm^2 (Vmax). Indexed valve area: 1.24cm^2/m^2 (Vmax). Peak gradient: 11mm Hg (S). AORTA: Aortic root: The aortic root was normal in size. MITRAL VALVE: Structurally normal valve. Doppler: Transvalvular velocity was within the normal range. There was no evidence for stenosis. Trace regurgitation. LEFT ATRIUM: The atrium was normal in size. RIGHT VENTRICLE: The cavity size was normal. Wall thickness was normal. PULMONIC VALVE: Doppler: Transvalvular velocity was within the normal range. There was no evidence for stenosis. No regurgitation. TRICUSPID VALVE: Structurally normal valve. Doppler: Transvalvular velocity was within the normal range. Trace regurgitation. PULMONARY ARTERY: The main pulmonary artery was normal-sized. Systolic pressure was within the normal range. RIGHT ATRIUM: The atrium was normal in size. PERICARDIUM: There was no pericardial effusion. SYSTEMIC VEINS: Inferior vena cava: The vessel was normal in size. Patient weight: 197.6lb _Ejection fraction:_ 65-75% _Fractional shortening:_ 32% up to 5Kg 5-11.5Kg 11.6-22.9Kg 23-45Kg 45-57Kg Aortic Root 7-13 <17 13-22 17-27 17-27 LA diam 6-13 <23 24-38 33-47 37-40 RVID 10-17 7-15 7-15 7-18 8-17 LVIDd 12-22 <32 24-38 33-47 37-40 LVPW 2-4 3-6 5-7 6-8 7-8 IVS 2-4 3-6 5-7 6-8 7-8 BASIC MEASUREMENTS ADULT NORMAL Left ventricle LV internal dimension, ED, chordal *52.9 mm 43-52 level, PLAX LV internal dimension, ES, chordal 35 mm 23-38 level, PLAX Fractional shortening, chordal level, 34 % >29 PLAX LV posterior wall thickness, ED 7.95 mm IVS/LVPW ratio, ED 1 <1.3 Ventricular septum Septal thickness, ED 7.96 mm Aortic valve Leaflet separation 23 mm 15-26 BASIC MEASUREMENTS ADULT NORMAL Aortic valve Leaflet separation 23 mm 15-26 Aorta Root diameter, ED 28 mm 20-37 Left atrium Anterior-posterior dimension, ES 26 mm 19-40 Anterior-posterior dimension index, ES 1.37 cm/m^2 <2.2 LA/aortic root ratio 0.93 DOPPLER MEASUREMENTS ADULT NORMAL Main pulmonary artery Pressure, S 20 mm Hg =30 Aortic valve Peak velocity, S 166 cm/s Peak gradient, S 11 mm Hg Valve area, Vmax 2.36 cm^2 Valve area index, Vmax 1.24 cm^2/m^2 Mitral valve Peak E-wave velocity 62.7 cm/s Peak A-wave velocity 76.5 cm/s Deceleration time *264 ms 150-230 Peak E/A ratio 0.8 Maximal regurgitant velocity 307 cm/s Tricuspid valve Regurgitant peak velocity 191 cm/s Peak RV-RA gradient, S 15 mm Hg Maximal regurgitant velocity 191 cm/s Systemic veins Estimated CVP 10 mm Hg Right ventricle RV pressure, S 25 mm Hg <30 Pulmonic valve Peak velocity, S 117 cm/s LEGEND: Mean values are shown as u=mean value. Asterisk (*) caldwell values outside specified normal range. Prepared and signed by Mario Agrawal [id number]
[2016-03-25] MEDS ORDERED: ENALAPRILAT 2.5 MG/2 ML VIAL IV PUSH PRN (19:15)
[2016-03-25] MEDS: ACETAMINOPHEN 325 MG TAB PO PRN (21:36)
[2016-03-25] MEDS: LISINOPRIL 5 MG TAB PO SCH (21:36)
[2016-03-26] VITALS (7 sets, daily range): BP systolic 138–180; BP diastolic 70–92; PULSE 53–64; RESP 16–20; TEMP 97.2–98.1; O2SAT 89–96
[2016-03-26] MEDS: ACETAMINOPHEN 325 MG TAB PO PRN ×2 (04:05→12:07)
[2016-03-26] MEDS: LISINOPRIL 5 MG TAB PO SCH (07:49)
[2016-03-26] MEDS ORDERED: LEVOTHYROXINE SODIUM 100 MCG TAB PO ONE (08:30)
[2016-03-26] MEDS: SODIUM CHLORIDE 0.9% FLUSH 5 ML FLUSH FLUSH SCH (09:00)
[2016-03-26] MEDS: APIXABAN 5 MG TABLET PO SCH (09:39)
[2016-03-26] MEDS: VERAPAMIL HCL 180 MG SUSTAINED RELEASE TAB PO SCH (09:39)
[2016-03-26] MEDS ORDERED: LISI-519 PO (16:23)
[2016-03-26] MEDS ORDERED: LISINOPRIL 10 MG TAB PO SCH (21:00)
[2016-03-27] MEDS ORDERED: LEVOTHYROXINE SODIUM 100 MCG TAB PO SCH (06:00)
== END 2016-03-26 18:50 | disposition home or self-care (01) ==
LOC: NEPA 12:07 → NEDA 15:13 → N04B 22:45
PROVIDERS: ADMIT Hospitalist; ATTEND Hospitalist
DX: I48.92 Unspecified atrial flutter (principal); E87.6 Hypokalemia; I10 Essential (primary) hypertension; E11.9 Type 2 diabetes mellitus without complications; E78.5 Hyperlipidemia, unspecified; E03.9 Hypothyroidism, unspecified; Z98.84 Bariatric surgery status; Z87.440 Personal history of urinary (tract) infections; Z82.49 Family history of ischemic heart disease and other diseases of the circulatory system
CPT/HCPCS: 70450; 71010; 78582; 80048; 80053; 81001; 82550; 83735; 83880; 84439; 84443; 84484; 85025; 85027; 85379; 85610; 85730; 93005; 93306; 93970; 94620; 96360; 99285; A9540; A9567; G0378; J1650; J7030